=== PATIENT | male | born 2000 | race Caucasian/White ===

== ENCOUNTER 2019-12-10 12:13 | Emergency (ER) | payer SELFPAY ==
[~2019-12-10 12:13] MED LIST: Heparin 10,000 UNITS/ 10 ML VIAL ONE
--- NOTE | 2019-12-10 13:17 | RAD ---
PORTABLE CHEST: Date: 12/10/2019 HISTORY: CHF. Dialysis. FINDINGS: Lungs appear clear. No evidence of vascular congestion or edema. Heart size upper normal. Dual lumen central line overlies the SVC. Heart size upper normal. IMPRESSION: No acute process. No evidence of congestive change. POS: [facility]
[2019-12-10 13:29] LABS: #Eosinphils 0.2 thou/uL (0.0-0.7); #Lymphocytes 1.2 thou/uL (1.20-3.40); #Monocytes 0.4 thou/uL (0.11-0.59); #Neutrophils 2.8 thou/uL (1.40-6.50); %Basophils 0.5 % (0.0-1.0); %Eosinophils 3.6 % (0.0-10.0); %Lymphocytes 25.5 % (21.0-51.0); %Monocytes 8.1 % (0.0-10.0); %Neutrophils 62.4 % (42.0-75.0); Hemoglobin 6.3 g/dL (14.0-18.0); Mean Corpuscular HGB CONC 35.6 g/dL (32.0-36.0); Mean Corpuscular Hemoglobin 31.6 pg (27.0-31.0); Mean Corpuscular Volume 88.8 fL (78.0-98.0); RBC Distribution Width 13.7 % (11.5-14.5); Red Blood Cell (RBC) Count 1.98 mill/uL (4.70-6.10); White Blood Cell (WBC) Count 4.5 thou/uL (4.8-10.8)
[2019-12-10 13:51] LABS: ALT (SGPT) Less than 7 U/L (8-55); AST (SGOT) 11 U/L (5-34); Albumin 3.7 g/dL (3.5-5.0); Alkaline Phosphatase 53 U/L (40-110); Anion Gap 17 mmol/L (10-20); BUN (Urea Nitrogen) 69 mg/dL (8.9-20.6); Bilirubin, Total 0.4 mg/dL (0.2-1.2); Calc. Creatinine Clearance 0 mL/min (70-130); Calcium 7.1 mg/dL (7.8-10.44); Carbon Dioxide 14 mmol/L (22-29); Chloride 111 mmol/L (98-107); Estimated GFR-MDRD 6; Globulin 2.1 g/dL (2.4-3.5); Glucose 96 mg/dL (70-105); Magnesium 1.9 mg/dL (1.6-2.6); Phosphorus 6.3 mg/dL (2.3-4.7); Potassium 4.5 mmol/L (3.5-5.1); Protein, Total 5.8 g/dL (6.0-8.3); Sodium 137 mmol/L (136-145)
[2019-12-10 13:55] LABS: MDiff Complete? YES; Mean Platelet Volume 8.3 fL (7.4-10.4); Platelet Count 69 thou/uL (130-400); Platelet Morphology Comment Appears Decreased; Polychromasia SLIGHT = 2-3 cells (100X) (0-2/hpf)
[2019-12-10] MEDS ORDERED: EPOETIN ALFA-EPBX (ESRD) 10,000 UNIT/ML VIAL IVP SCH (17:00)
[2019-12-10] MEDS ORDERED: cloNIDine 0.1 MG TAB PO SCH (18:15)
== END 2019-12-10 20:38 | disposition home or self-care (01) ==
LOC: ERS 12:13
DX: N18.9 Chronic kidney disease, unspecified (principal); D63.1 Anemia in chronic kidney disease; Z94.0 Kidney transplant status
CPT/HCPCS: 36415; 36430; 71045; 80053; 83735; 84100; 85025; 86850; 86900; 86901; 90935; 93005; G0257; J1644; P9016; Q5105